=== PATIENT | female | born 1965 | race Caucasian/White ===

== ENCOUNTER 2017-01-11 11:49 | Emergency (ER) | payer OTHER ==
[~2017-01-11] VITALS: Ht 167.6 cm; Wt 92.5 kg
[~2017-01-11 11:49] MED LIST: PREDNISONE50 MG PO; TESSALON PERLE100 MG PO; VENTOLIN HFA18 GM IH; ZITHROMAX Z-PA250 MG PO
[2017-01-11 13:56] LABS: ADD MIUA? YES; BILIRUBIN NEGATIVE; BLOOD SMALL; COLOR YELLOW ((YELLOW)); GLUCOSE (STRIP) NEGATIVE; KETONES NEGATIVE; LEUKOCYTES NEGATIVE; NITRITE NEGATIVE; PROTEIN (STRIP) 30; SPECIFIC GRAVITY 1.027 (1.000-1.030); UROBILINOGEN 0.2 MG/DL (0.2-1.0)
[2017-01-11 14:07] LABS: BACTERIA NONE SEEN /HPF; CALCIUM OXALATE CRYSTALS 2+ /HPF; EPITHELIAL CELLS 2+ /HPF; HYALINE CASTS 0-5 /LPF; MUCUS TRACE /LPF; WHITE BLOOD CELLS 0-5 /HPF (0-5)
[2017-01-11 14:42] LABS: EOSINOPHIL (%) 0.7 % (0-5); EOSINOPHIL COUNT 0.1 K/uL (0-0.3); HEMATOCRIT 34.7 % (36.0-46.0); IMMATURE GRANULOCYTE (%) 2.1 % (0.0-0.7); IMMATURE GRANULOCYTE COUNT 0.2 K/uL; INSTRUMENT ABS NEUTROPHIL CT 6.9 K/uL; LYMPHOCYTE COUNT 1.6 K/uL (1.0-2.8); MCH 34.5 PG (29.0-34.0); MCHC 33.4 G/DL (30.0-36.0); MCV 103.3 FL (83-99); MONOCYTE COUNT 0.6 K/uL (0-0.8); NEUTROPHIL (%) 73.6 % (45-76); NEUTROPHIL COUNT 6.9 K/uL (1.8-6.4); PLATELET COUNT 269 K/uL (156-360); RBC DIS.WIDTH-SD 53.8 % (39-53); RED BLOOD COUNT 3.36 M/uL (3.80-5.20); WHITE BLOOD COUNT 9.4 K/uL (4.1-10.2)
[2017-01-11 14:51] LABS: CHLORIDE 109 mEq/L (99-109); POTASSIUM 3.9 mEq/L (3.7-5.4); SODIUM 139 mEq/L (136-147)
[2017-01-11 14:53] LABS: GLUCOSE 100 mg/dL (70-99)
[2017-01-11 14:54] LABS: ANION GAP 6 MEQ/L (2-14)
[2017-01-11 14:57] LABS: GFR ESTIMATE (CALCULATED) > 59 mL/min/; UREA NITROGEN (BUN) 21 mg/dL (9-23)
[2017-01-11] MEDS ORDERED: NORCO 5/3251 TABLET PO (17:08)
[2017-01-11 17:34] VITALS: BP 165/92
== END 2017-01-11 17:35 | disposition home or self-care (01) ==
LOC: EME 11:49
PROVIDERS: Physician Assistant
DX: D32.0 Benign neoplasm of cerebral meninges (principal); J44.9 Chronic obstructive pulmonary disease, unspecified; F41.9 Anxiety disorder, unspecified; F19.10 Other psychoactive substance abuse, uncomplicated; F17.200 Nicotine dependence, unspecified, uncomplicated
CPT/HCPCS: 70487; 80048; 81003; 85025; 99281; 99284

== ENCOUNTER 2017-01-13 13:24 | Emergency (ER) | payer OTHER ==
[~2017-01-13] VITALS: Ht 167.6 cm; Wt 91.3 kg
[~2017-01-13 13:24] MED LIST changes: +NORCO 5/3251 TABLET PO
[2017-01-13 13:55] LABS: HEMATOCRIT 37.2 % (36.0-46.0); MCH 33.7 PG (29.0-34.0); MCHC 33.3 G/DL (30.0-36.0); MCV 101.1 FL (83-99); MEAN PLAT.VOLUME 9.2 uM^3 (9.5-12.4); PLATELET COUNT 301 K/uL (156-360); RBC DIS.WIDTH-CV 13.5 % (11.8-14.6); RBC DIS.WIDTH-SD 50.1 % (39-53); RED BLOOD COUNT 3.68 M/uL (3.80-5.20); WHITE BLOOD COUNT 8.4 K/uL (4.1-10.2)
[2017-01-13 14:11] LABS: CHLORIDE 109 mEq/L (99-109); POTASSIUM 3.6 mEq/L (3.7-5.4); SODIUM 144 mEq/L (136-147)
[2017-01-13 14:13] LABS: GLUCOSE 111 mg/dL (70-99)
[2017-01-13 14:14] LABS: ANION GAP 10 MEQ/L (2-14)
[2017-01-13 14:17] LABS: GFR ESTIMATE (CALCULATED) > 59 mL/min/; UREA NITROGEN (BUN) 22 mg/dL (9-23)
[2017-01-13 18:34] LABS: ADD MIUA? YES; BILIRUBIN NEGATIVE; BLOOD SMALL; COLOR YELLOW ((YELLOW)); GLUCOSE (STRIP) NEGATIVE; KETONES NEGATIVE; LEUKOCYTES NEGATIVE; NITRITE NEGATIVE; PROTEIN (STRIP) 30; SPECIFIC GRAVITY 1.023 (1.000-1.030); UROBILINOGEN 0.2 MG/DL (0.2-1.0)
[2017-01-13 18:38] LABS: BACTERIA NONE SEEN /HPF; EPITHELIAL CELLS 1+ /HPF; MUCUS TRACE /LPF; RED BLOOD CELLS 30-40 /HPF (0-5); WHITE BLOOD CELLS 0-5 /HPF (0-5)
[2017-01-14 03:45] VITALS: BP 131/76
== END 2017-01-14 03:47 | disposition short-term general hospital (02) ==
LOC: EXP 13:24 → EME 13:24 → EXP 01-14 03:47
PROVIDERS: Nurse Practitioner Family
DX: D32.0 Benign neoplasm of cerebral meninges (principal); H53.8 Other visual disturbances; R51 Headache; J44.9 Chronic obstructive pulmonary disease, unspecified; F17.210 Nicotine dependence, cigarettes, uncomplicated
CPT/HCPCS: 71020; 80048; 81003; 85027; 93005; 99281; 99285; J1100; J1200; J1885; J2765; J3010; J7030

== ENCOUNTER 2017-04-03 07:52 | Inpatient (IN) | payer OTHER ==
[~2017-04-03] VITALS: Ht 167.6 cm; Wt 85.6 kg
[2017-04-03 08:42] LABS: HEMATOCRIT 34.4 % (36.0-46.0); MCHC 34.9 G/DL (30.0-36.0); MCV 94.5 FL (83-99); MEAN PLAT.VOLUME 9.1 uM^3 (9.5-12.4); PLATELET COUNT 311 K/uL (156-360); RBC DIS.WIDTH-CV 12.6 % (11.8-14.6); RBC DIS.WIDTH-SD 43.5 % (39-53); RED BLOOD COUNT 3.64 M/uL (3.80-5.20); WHITE BLOOD COUNT 5.9 K/uL (4.1-10.2)
[2017-04-03 08:59] LABS: CHLORIDE 110 mEq/L (99-109); POTASSIUM 2.6 mEq/L (3.7-5.4); SODIUM 144 mEq/L (136-147)
[2017-04-03 09:01] LABS: GLUCOSE 119 mg/dL (70-99)
[2017-04-03 09:03] LABS: ANION GAP 13 MEQ/L (2-14); TOTAL BILIRUBIN 0.5 mg/dL (0.0-1.0)
[2017-04-03 09:05] LABS: ALKALINE PHOSPHATASE 148 IU/L (3-129); GFR ESTIMATE (CALCULATED) > 59 mL/min/
[2017-04-03 09:06] LABS: UREA NITROGEN (BUN) 10 mg/dL (9-23)
[2017-04-03 09:36] LABS: SERUM ETHYL ALCOHOL 246 mg/dL
[2017-04-03 11:27] LABS: LIPASE 12 U/L (1.0-51.0)
[2017-04-03 17:40] LABS: ADD MEDTOX COMMENT Y; AMPHETAMINE NEGATIVE (500 ng/mL); BARBITURATES NEGATIVE (200 ng/mL); BENZODIAZEPINES PRESUMPTIVE POSITIVE (150 ng/mL); COCAINE PRESUMPTIVE POSITIVE (150 ng/mL); INTERNAL CONTROLS VALID? YES; METHADONE NEGATIVE (200 ng/mL); METHAMPHETAMINE NEGATIVE (500 ng/mL); OPIATES (MORPHINE) NEGATIVE (100 ng/mL); OXYCODONE NEGATIVE (100 ng/mL); PHENCYCLIDINE NEGATIVE (25 ng/mL); PROPOXYPHENE NEGATIVE (300 ng/mL); THC CANNABINOIDS NEGATIVE (50 ng/mL); TRICYCLIC ANTIDEPRESSANTS NEGATIVE (300 ng/mL)
[2017-04-03 18:15] LABS: BENZODIAZEPINES QUANT VALUE 0 NG/ML; BENZODIAZEPINES, URINE SCREEN Negative (200 ng/mL)
[2017-04-03] MEDS ORDERED: VISTARIL25 MG PO (18:36)
[2017-04-03] MEDS ORDERED: TRAZODONE HCL50 MG PO (18:36)
[2017-04-03 19:06] VITALS: BP 178/95
[2017-04-03] MEDS ORDERED: VISTARIL (20:56)
[2017-04-03] MEDS ORDERED: TRAZODONE (20:57)
[2017-04-03 21:56] VITALS: BP 125/61
[2017-04-04 08:25] VITALS: BP 167/97
[2017-04-04 11:25] VITALS: BP 157/90
[2017-04-04 16:17] VITALS: BP 184/113
[2017-04-04 21:11] VITALS: BP 167/98
[2017-04-05 07:23] VITALS: BP 167/101
[2017-04-05 11:43] VITALS: BP 158/95
[2017-04-05 15:21] VITALS: BP 161/106
[2017-04-05 21:21] VITALS: BP 176/93
[2017-04-06 07:46] VITALS: BP 172/102
[2017-04-06 14:17] VITALS: BP 142/83
[2017-04-06 15:38] VITALS: BP 142/83
[2017-04-07 08:28] VITALS: BP 151/106
[2017-04-07] MEDS ORDERED: ESCITALOPRAM OX10 MG PO (09:44)
== END 2017-04-07 11:15 | disposition home or self-care (01) | DRG 885 ==
LOC: EME 07:52 → EDOF 15:34 → ENRESERV 18:15 → 1WEST 18:57
PROVIDERS: Emergency Medicine
DX: F32.1 Major depressive disorder, single episode, moderate (principal); F10.230 Alcohol dependence with withdrawal, uncomplicated; F10.220 Alcohol dependence with intoxication, uncomplicated; Y90.8 Blood alcohol level of 240 mg/100 ml or more; F14.20 Cocaine dependence, uncomplicated; F12.90 Cannabis use, unspecified, uncomplicated; F60.9 Personality disorder, unspecified; F11.20 Opioid dependence, uncomplicated; R45.851 Suicidal ideations; J44.9 Chronic obstructive pulmonary disease, unspecified
CPT/HCPCS: 80053; 82607; 82746; 83690; 84132; 84999; 85027; 90839; 94640; 97150 GO; 97165 GO; 99281; 99285; G0480; J7030; Q0177

== ENCOUNTER 2017-08-05 16:03 | Inpatient (IN) | payer OTHER ==
[~2017-08-05] VITALS: Ht 167.6 cm; Wt 86.1 kg
[~2017-08-05 16:03] MED LIST changes: +ESCITALOPRAM OX10 MG PO; +TRAZODONE; +TRAZODONE HCL50 MG PO; +VISTARIL; +VISTARIL25 MG PO
[2017-08-05 16:15] LABS: HEMATOCRIT 39.7 % (36.0-46.0); MCH 33.4 PG (29.0-34.0); MCV 95.4 FL (83-99); MEAN PLAT.VOLUME 9.4 uM^3 (9.5-12.4); PLATELET COUNT 373 K/uL (156-360); RBC DIS.WIDTH-CV 14.3 % (11.8-14.6); RBC DIS.WIDTH-SD 50.1 % (39-53); RED BLOOD COUNT 4.16 M/uL (3.80-5.20); WHITE BLOOD COUNT 6.8 K/uL (4.1-10.2)
[2017-08-05 16:28] LABS: CHLORIDE 110 mEq/L (99-109); POTASSIUM 4.2 mEq/L (3.7-5.4); SODIUM 140 mEq/L (136-147)
[2017-08-05 16:30] LABS: GLUCOSE 119 mg/dL (70-99)
[2017-08-05 16:31] LABS: ANION GAP 11 MEQ/L (2-14)
[2017-08-05 16:33] LABS: GFR ESTIMATE (CALCULATED) > 59 mL/min/; SERUM ETHYL ALCOHOL 180 mg/dL
[2017-08-05 16:34] LABS: UREA NITROGEN (BUN) 21 mg/dL (9-23)
[2017-08-05 18:18] LABS: ADD MIUA? YES; BILIRUBIN NEGATIVE; BLOOD SMALL; COLOR YELLOW ((YELLOW)); GLUCOSE (STRIP) NEGATIVE; KETONES NEGATIVE; LEUKOCYTES NEGATIVE; NITRITE NEGATIVE; PROTEIN (STRIP) NEGATIVE; SPECIFIC GRAVITY 1.014 (1.000-1.030); UROBILINOGEN 0.2 MG/DL (0.2-1.0)
[2017-08-05 18:19] LABS: INTERNAL CONTROL VALID? YES
[2017-08-05 18:22] LABS: BACTERIA NONE SEEN /HPF; EPITHELIAL CELLS 1+ /HPF; MUCUS TRACE /LPF; RED BLOOD CELLS 0-5 /HPF (0-5); UCUL ADDED? NO; WHITE BLOOD CELLS 0-5 /HPF (0-5)
[2017-08-05 18:36] LABS: ADD MEDTOX COMMENT Y; AMPHETAMINE NEGATIVE (500 ng/mL); BARBITURATES NEGATIVE (200 ng/mL); BENZODIAZEPINES NEGATIVE (150 ng/mL); COCAINE PRESUMPTIVE POSITIVE (150 ng/mL); INTERNAL CONTROLS VALID? YES; METHADONE NEGATIVE (200 ng/mL); METHAMPHETAMINE NEGATIVE (500 ng/mL); OPIATES (MORPHINE) NEGATIVE (100 ng/mL); OXYCODONE NEGATIVE (100 ng/mL); PHENCYCLIDINE NEGATIVE (25 ng/mL); PROPOXYPHENE NEGATIVE (300 ng/mL); THC CANNABINOIDS NEGATIVE (50 ng/mL); TRICYCLIC ANTIDEPRESSANTS NEGATIVE (300 ng/mL)
[2017-08-06 00:53] VITALS: BP 179/96
[2017-08-06] MEDS ORDERED: MOTRIN800 MG PO (00:55)
[2017-08-06 07:45] VITALS: BP 130/82
[2017-08-06 11:21] VITALS: BP 144/92
[2017-08-06 15:20] VITALS: BP 151/81
[2017-08-06 19:52] VITALS: BP 185/94
[2017-08-07 07:55] VITALS: BP 153/101
[2017-08-07 13:01] VITALS: BP 126/83
[2017-08-07 15:40] VITALS: BP 147/94
[2017-08-08 01:47] VITALS: BP 138/100
[2017-08-08 07:54] VITALS: BP 150/102
[2017-08-08] MEDS ORDERED: DIVALPROEX SOD250 MG PO (11:57)
[2017-08-08] MEDS ORDERED: ESCITALOPRAM OX10 MG PO (11:57)
[2017-08-08] MEDS ORDERED: DEXAMETHASONE4 MG PO ×2 (11:58→13:39)
== END 2017-08-08 13:11 | disposition home or self-care (01) | DRG 885 ==
LOC: EME 16:03 → ENRESERV 22:40 → EDOF 23:21 → 1WEST 23:21
PROVIDERS: Emergency Medicine
DX: F33.1 Major depressive disorder, recurrent, moderate (principal); R45.851 Suicidal ideations; F60.9 Personality disorder, unspecified; F14.10 Cocaine abuse, uncomplicated; D32.0 Benign neoplasm of cerebral meninges; R51 Headache; F41.9 Anxiety disorder, unspecified; R20.0 Anesthesia of skin; D33.2 Benign neoplasm of brain, unspecified; F10.20 Alcohol dependence, uncomplicated; F17.200 Nicotine dependence, unspecified, uncomplicated; Y90.5 Blood alcohol level of 100-119 mg/100 ml; Z59.0 Homelessness
CPT/HCPCS: 70450; 70553; 71020; 80048; 81003; 84703; 84999; 85027; 90686; 90839; 97150 GO; 97166 GO; 99281; 99285; G0480; J8540; Q0177